=== PATIENT | female | born 1995 | race Caucasian/White ===

== ENCOUNTER 2018-04-22 10:14 | Inpatient (IN) | payer MEDICAID ==
[~2018-04-22] VITALS: Ht 154.9 cm; Wt 85.3 kg
[2018-04-22] MEDS ORDERED: LR 1,000 ML IV SCH (11:00)
[2018-04-22] MEDS ORDERED: OXYTOCIN/0.9 % SODIUM CHLORIDE 1,000 ML IV SCH (11:00)
[2018-04-22] MEDS ORDERED: LR 1,000 ML IV ONE (11:00)
[2018-04-22 11:38] LABS: RED BLOOD CELL COUNT(AUTO) 4.01 MIL/uL (4.2-6.2); WHITE BLOOD COUNT (AUTO) 10.7 K/uL (4.8-10.8)
[2018-04-22 11:39] LABS: HEMATOCRIT 37.3 % (36-48); HEMOGLOBIN 12.9 g/dL (12.0-16.0); LYMPHOCYTES % (AUTO) 14.9 % (20.5-51.5); MEAN CORPUSCULAR HEMOGLOBIN 32 pg (27-31); MEAN CORPUSCULAR HGB CONC 35 % (32-36); MEAN CORPUSCULAR VOLUME 93 fL (79.0-98.0); NEUTROPHILS % (AUTO) 76.7 % (40.0-70.0); PLATELET COUNT (AUTO) 165 K/uL (130-430); RED CELL DISTRIBUTION WIDTH 12.9 % (9.0-15.0)
[2018-04-22 11:40] LABS: BASOPHILS % (AUTO) 0.2 % (0.0-2.0); EOSINOPHILS % (AUTO) 0.2 % (0.0-4.0); LYMPHOCYTES # (AUTO) 1.6 K/uL (1.0-5.5); MONOCYTES # (AUTO) 0.9 K/uL (0.0-1.0); NEUTROPHILS # (AUTO) 8.2 K/uL (1.8-7.7)
[2018-04-22] MEDS ORDERED: CLINDAMYCIN 900 mg/50mL D5W 50 ML IV ONE (12:01)
[2018-04-22] MEDS ORDERED: DIPH-TET-PERTUS Vaccine 0.5 ML VIAL (ADACEL) I.M. ONE (13:00)
[2018-04-22 19:28] VITALS: BP_SYST 112
[2018-04-22] MEDS: CLINDAMYCIN 900 mg/50mL D5W 50 ML IV SCH (20:45)
[2018-04-22] MEDS ORDERED: TEMAZEPAM 15 MG CAPSULE PO PRN (21:00)
[2018-04-22] MEDS ORDERED: NALOXONE HCL 0.4 MG/ML AMP (NARCAN) IVP PRN ×2 (21:30)
[2018-04-22] MEDS ORDERED: DIPHENHYDRAMINE INJ 50 MG/ML VIAL IVP PRN (21:30)
[2018-04-22] MEDS ORDERED: ONDANSETRON HCL 4 MG/2 ML VIAL IVP PRN (21:30)
[2018-04-22] MEDS ORDERED: MORPHINE SULFATE 10MG/10ML PF AMP SP SCH (21:30)
[2018-04-22] MEDS ORDERED: KETOROLAC TROMETHAMINE 60 MG/2 ML VIAL IM PRN (21:30)
[2018-04-22] MEDS ORDERED: OXYTOCIN/0.9 % SODIUM CHLORIDE 1,000 ML IV ONE (21:54)
[2018-04-22] MEDS ORDERED: DOCUSATE SODIUM 100 MG CAPSULE PO PRN (22:00)
[2018-04-22] MEDS ORDERED: LANOLIN 7 GM OINT. TP PRN (22:00)
[2018-04-22] MEDS ORDERED: ANUSOL 1 EA SUPP.RECT (PREPARATION H) RC PRN (22:00)
[2018-04-22] MEDS ORDERED: SIMETHICONE 80 MG TAB.CHEW PO PRN (22:00)
[2018-04-22] MEDS ORDERED: MEASLES,MUMPS&RUBELLA VACC/PF 12500 UNIT/0.5 ML VIAL SUBQ PRN (22:00)
[2018-04-22 22:55] VITALS: BP_SYST 111
[2018-04-22] MEDS ORDERED: KETOROLAC TROMETHAMINE 30 MG VIAL ONE (23:05)
[2018-04-23] MEDS: CLINDAMYCIN 900 mg/50mL D5W 50 ML IV SCH (04:23)
[2018-04-23] MEDS: IBUPROFEN 600 MG TABLET PO SCH ×2 (12:32)
[2018-04-23 16:53] LABS: BASOPHILS % (AUTO) 0.2 % (0.0-2.0); EOSINOPHILS % (AUTO) 0.2 % (0.0-4.0); HEMATOCRIT 34.7 % (36-48); HEMOGLOBIN 11.7 g/dL (12.0-16.0); LYMPHOCYTES # (AUTO) 1.4 K/uL (1.0-5.5); LYMPHOCYTES % (AUTO) 12.9 % (20.5-51.5); MEAN CORPUSCULAR HEMOGLOBIN 32 pg (27-31); MEAN CORPUSCULAR HGB CONC 34 % (32-36); MEAN CORPUSCULAR VOLUME 95 fL (79.0-98.0); MONOCYTES # (AUTO) 0.9 K/uL (0.0-1.0); MONOCYTES % (AUTO) 8.4 % (1.7-9.3); NEUTROPHILS # (AUTO) 8.4 K/uL (1.8-7.7); NEUTROPHILS % (AUTO) 78.3 % (40.0-70.0); PLATELET COUNT (AUTO) 118 K/uL (130-430); RED BLOOD CELL COUNT(AUTO) 3.68 MIL/uL (4.2-6.2); RED CELL DISTRIBUTION WIDTH 13.1 % (9.0-15.0); WHITE BLOOD COUNT (AUTO) 10.7 K/uL (4.8-10.8)
[2018-04-23] MEDS ORDERED: NALBUPHINE HCL 10 MG/ML AMP IVP PRN (21:30)
[2018-04-23] MEDS ORDERED: HYDROcodone/ACETAMIN 5-325 MG TAB (NORCO/ VICODIN) PO PRN (22:00)
[2018-04-23] MEDS ORDERED: OXYCODONE/ACETAMINOPHEN 5-325 TABLET PO PRN ×2 (22:00)
[2018-04-24] MEDS: IBUPROFEN 600 MG TABLET PO SCH ×2 (06:00→12:25)
== END 2018-04-24 17:20 | disposition home or self-care (01) | DRG 540 ==
LOC: EDBD 10:14 → SPU 10:14
PROVIDERS: ADMIT Obstetrics & Gynecology; ATTEND Obstetrics & Gynecology
PROC: 10D00Z1 Extraction of Products of Conception, Low, Open Approach (ICD-10-PCS; principal; 2018-04-22 22:00)
DX: O62.2 Other uterine inertia (principal); O99.824 Streptococcus B carrier state complicating childbirth; O69.2XX0 Labor and delivery complicated by other cord entanglement, with compression, not applicable or unspecified; Z37.0 Single live birth; Z3A.40 40 weeks gestation of pregnancy; Z88.1 Allergy status to other antibiotic agents
CPT/HCPCS: 36415; 85025; 86870; 86886; 86900; 86901; 94760; J1885; J2405; J2590; J3490; J7120

== ENCOUNTER 2018-05-07 17:13 | Emergency (ER) | payer MEDICAID ==
[~2018-05-07] VITALS: Ht 154.9 cm; Wt 76.7 kg
[2018-05-07 17:20] VITALS: BP_SYST 91
--- NOTE | 2018-05-07 17:31 | NUR ---
Patient to ER bed 07 to gown for evaluation. Side rails up. Report given to Moon FRANKLIN.
--- NOTE | 2018-05-07 17:40 | NUR ---
Pt AAOx4 ambulated into ED c/o 10/16 pain to scar; Pt has hx of c-sect x 2 weeks ago. Pt noticed swelling and clear discharge from site last night, placed warm compress on site with mild relief. Pt denies taking medication for pain. No other injuries/complaints per pt/noted. Will continue to monitor.
--- NOTE | 2018-05-07 17:49 | NUR ---
ER Dr. Constantino at bedside examining patient.
[2018-05-07 18:00] VITALS: BP_SYST 112
--- NOTE | 2018-05-07 18:00 | NUR ---
Patient given written and verbal discharge instructions and verbalizes understanding. ER MD Constantino discussed with patient the results and treatment provided. Patient in stable condition. ID arm band removed. Rx of Clindamycin given. Patient educated on pain management and to follow up with PMD. Pain Scale 0. Opportunity for questions provided and answered. Medication side effect fact sheet provided.
== END 2018-05-07 18:00 | disposition home or self-care (01) ==
LOC: SED 17:13
DX: O86.0 Infection of obstetric surgical wound (principal); L03.311 Cellulitis of abdominal wall; Z88.1 Allergy status to other antibiotic agents
CPT/HCPCS: 99283